=== PATIENT | male | born 1985 | race Caucasian/White ===

== ENCOUNTER 2017-02-24 17:07 | Emergency (ER) | payer BC ==
[~2017-02-24] VITALS: Ht 172.7 cm; Wt 72.6 kg
[~2017-02-24 17:07] MED LIST: AUGMENTIN 875 M1 TAB PO; BACTRIM DS 8001 TA1 PO; CLARITIN10 MG PO; IBU-8800 MG PO; IBU800 MG PO; KEFLEX500 M1 PO; KEFLEX500 MG PO; LEVAQUIN750 M1 PO; LOPRESSOR50 M1 PO; MEDROL DOSEPAK4 MG PO; MOTRIN800 MG PO; Motrin,Rufen800 MG PO; NAPROSYN500 MG PO; PREDNISONE50 MG PO; ULTRAM50 MG PO; ZESTRIL10 MG PO
[2017-02-24 17:17] VITALS: BP 160/100
[2017-02-24] MEDS ORDERED: CEPHALEXIN500 M1 PO (18:42)
== END 2017-02-24 18:46 | disposition home or self-care (01) ==
LOC: ED 17:07
DX: S01.02XA Laceration with foreign body of scalp, initial encounter (principal); Z29.12 Encounter for prophylactic antivenin; F17.200 Nicotine dependence, unspecified, uncomplicated; W22.8XXA Striking against or struck by other objects, initial encounter; Y93.56 Activity, jumping rope; Y92.9 Unspecified place or not applicable; Y99.9 Unspecified external cause status

== ENCOUNTER 2017-02-26 11:33 | Emergency (ER) | payer BC ==
[~2017-02-26] VITALS: Ht 172.7 cm; Wt 72.6 kg
[~2017-02-26 11:33] MED LIST changes: +CEPHALEXIN500 M1 PO
[2017-02-26 11:39] VITALS: BP 145/82
== END 2017-02-26 13:17 | disposition home or self-care (01) ==
LOC: ED 11:33
DX: S01.81XD Laceration without foreign body of other part of head, subsequent encounter (principal); R22.0 Localized swelling, mass and lump, head; I10 Essential (primary) hypertension; Z79.899 Other long term (current) drug therapy; X58.XXXD Exposure to other specified factors, subsequent encounter; Y92.9 Unspecified place or not applicable; Y99.9 Unspecified external cause status

== ENCOUNTER → 2017-11-02 | Outpatient (CLI) | payer BC | END | disposition home or self-care (01) | LOC: RAD 14:52 | DX: G47.00 Insomnia, unspecified (principal); R05 Cough; I10 Essential (primary) hypertension; F17.200 Nicotine dependence, unspecified, uncomplicated ==

== ENCOUNTER → 2017-11-09 | Outpatient (CLI) | payer BC | END | disposition home or self-care (01) | LOC: CARD 15:00 | DX: R01.1 Cardiac murmur, unspecified (principal) ==

== ENCOUNTER → 2017-12-27 | Day surgery (SDC) | payer BC ==
[~2017-12-27] VITALS: Ht 172.7 cm; Wt 72.6 kg
[~2017-12-27] MED LIST changes: +METOPROLOL SUCC25 M2 PO
[2017-12-27 07:30] VITALS: BP 127/75
[2017-12-27 09:06] VITALS: BP 117/71
[2017-12-27 09:22] VITALS: BP 117/80
[2017-12-27 09:40] VITALS: BP 133/62
== END | disposition home or self-care (01) ==
LOC: SDC 12-22 09:30
DX: L72.0 Epidermal cyst (principal); I10 Essential (primary) hypertension; Z82.49 Family history of ischemic heart disease and other diseases of the circulatory system; F17.210 Nicotine dependence, cigarettes, uncomplicated; K21.9 Gastro-esophageal reflux disease without esophagitis; F41.9 Anxiety disorder, unspecified; Z79.899 Other long term (current) drug therapy; Z87.442 Personal history of urinary calculi; Z88.8 Allergy status to other drugs, medicaments and biological substances

== ENCOUNTER 2018-08-02 23:54 | Emergency (ER) | payer BC ==
--- NOTE | ~2018-08-02 | EKG ---
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
[2018-08-03 00:34] LABS: BASO # 0.1 10*3/uL (0.0-0.1); BASO % 0.6 % (0.0-1.0); EOS # 0.2 10*3/uL (0.0-0.4); HEMATOCRIT 47.5 % (42.0-52.0); HEMOGLOBIN 16.3 g/dl (14.0-18.0); LYMPH # 2.4 10*3/uL (1.3-4.4); LYMPH % 28.6 % (27.0-41.0); MEAN CELL VOLUME 98.5 fl (80.0-94.0); MEAN CORPUSCULAR HGB 33.8 pg (27.0-31.0); MEAN CORPUSCULAR HGB CONC 34.3 g/dl (33.0-37.0); MEAN PLATELET VOLUME 8.7 fl (9.6-12.3); MONO # 0.8 10*3/uL (0.1-1.0); NEUT % 59.4 % (47.0-73.0); PLATELET COUNT AUTOMATED 203 10*3/uL (130-400); RED BLOOD COUNT 4.82 10*6/uL (4.50-5.90); RED CELL DISTRI WIDTH 12.4 % (0-14.5); WHITE BLOOD COUNT 8.5 10*3/uL (4.8-10.8)
[2018-08-03 00:45] VITALS: BP 130/82
[2018-08-03 00:45] LABS: ACT PARTIAL THROMBO TIME 27.9 SECONDS (20.8-31.5); INTERNATIONAL NORM RATIO 0.9 (2.0-3.5)
[2018-08-03 00:51] LABS: ALBUMIN 3.7 gm/dl (3.1-4.5); ALKALINE PHOSPHATASE 74 U/L (45-117); BUN 7 mg/dl (7-24); CHLORIDE 102 mmol/L (98-107); CREATININE 0.93 mg/dL (0.70-1.30); POTASSIUM 3.1 mmol/L (3.5-5.1); SGOT/AST 29 IU/L (3-35); SGPT/ALT 29 U/L (12-78); SODIUM 137 mmol/L (136-145)
[2018-08-03 00:55] LABS: TROPONIN I < 0.015 ng/ml (<0.045)
== END 2018-08-03 01:51 | disposition home or self-care (01) ==
LOC: ED 23:54
PROVIDERS: Student in an Organized Health Care Education/Training Program
DX: R07.89 Other chest pain (principal); R06.02 Shortness of breath; R11.0 Nausea; R51 Headache; R53.1 Weakness; R00.0 Tachycardia, unspecified; I10 Essential (primary) hypertension; F17.200 Nicotine dependence, unspecified, uncomplicated; Z88.2 Allergy status to sulfonamides; Z79.899 Other long term (current) drug therapy

== ENCOUNTER 2019-03-20 09:34 | Emergency (ER) | payer BC ==
[~2019-03-20] VITALS: Ht 172.7 cm; Wt 72.6 kg
[2019-03-20 09:36] VITALS: BP 143/78
[2019-03-20] MEDS ORDERED: NAPROSYN500 MG PO (10:44)
== END 2019-03-20 10:50 | disposition home or self-care (01) ==
LOC: ED 09:34
DX: S62.326A Displaced fracture of shaft of fifth metacarpal bone, right hand, initial encounter for closed fracture (principal); F17.200 Nicotine dependence, unspecified, uncomplicated; Z88.2 Allergy status to sulfonamides; Z79.899 Other long term (current) drug therapy; W22.09XA Striking against other stationary object, initial encounter; Y93.89 Activity, other specified; Y92.810 Car as the place of occurrence of the external cause; Y99.8 Other external cause status

== ENCOUNTER 2019-11-26 15:17 | Emergency (ER) | payer SELFPAY ==
[~2019-11-26] VITALS: Ht 172.7 cm; Wt 81.6 kg
[2019-11-26 16:10] LABS: BASO % 0.4 % (0.0-1.0); EOS # 0.1 10*3/uL (0.0-0.4); EOS % 1.1 % (1.0-4.0); HEMATOCRIT 49.2 % (42.0-52.0); HEMOGLOBIN 16.4 g/dl (14.0-18.0); LYMPH # 1.2 10*3/uL (1.3-4.4); LYMPH % 16.4 % (27.0-41.0); MEAN CELL VOLUME 92.8 fl (80.0-94.0); MEAN CORPUSCULAR HGB 30.9 pg (27.0-31.0); MEAN CORPUSCULAR HGB CONC 33.3 g/dl (33.0-37.0); MEAN PLATELET VOLUME 9.5 fl (9.6-12.3); MONO # 0.4 10*3/uL (0.1-1.0); MONO % 5.4 % (3.0-9.0); NEUT # 5.3 10*3/uL (2.3-7.9); NEUT % 76.4 % (47.0-73.0); PLATELET COUNT AUTOMATED 206 10*3/uL (130-400); RED CELL DISTRI WIDTH 13.2 % (0-14.5)
== END 2019-11-26 16:27 | disposition home or self-care (01) ==
LOC: ED 15:17
PROVIDERS: Emergency Medicine
DX: B34.9 Viral infection, unspecified (principal); I10 Essential (primary) hypertension

== ENCOUNTER 2020-11-16 06:31 | Emergency (ER) | payer OTHER ==
[~2020-11-16] VITALS: Ht 172.7 cm; Wt 79.4 kg
[2020-11-16 06:45] VITALS: BP 157/86
== END 2020-11-16 07:28 | disposition home or self-care (01) ==
LOC: ED 06:31
DX: R50.9 Fever, unspecified (principal); R11.2 Nausea with vomiting, unspecified; R19.7 Diarrhea, unspecified; R10.9 Unspecified abdominal pain; R09.81 Nasal congestion; R05 Cough; I10 Essential (primary) hypertension; F17.200 Nicotine dependence, unspecified, uncomplicated; Z20.822 Contact with and (suspected) exposure to COVID-19; Z88.2 Allergy status to sulfonamides; Z79.899 Other long term (current) drug therapy; Z87.442 Personal history of urinary calculi

== ENCOUNTER 2021-02-09 19:11 | Emergency (ER) | payer OTHER | END 2021-02-09 19:33 | disposition left against medical advice (07) | LOC: ED 19:11 | DX: S91.319A Laceration without foreign body, unspecified foot, initial encounter (principal); Z53.21 Procedure and treatment not carried out due to patient leaving prior to being seen by health care provider; X58.XXXA Exposure to other specified factors, initial encounter; Y93.89 Activity, other specified; Y92.89 Other specified places as the place of occurrence of the external cause; Y99.8 Other external cause status ==

== ENCOUNTER 2021-06-06 09:44 | Emergency (ER) | payer BC ==
[~2021-06-06] VITALS: Ht 172.7 cm; Wt 81.6 kg
[2021-06-06 11:50] LABS: BASO % 0.6 % (0.0-1.0); EOS # 0.1 10*3/uL (0.0-0.4); EOS % 1.4 % (1.0-4.0); HEMATOCRIT 54.5 % (42.0-52.0); LYMPH # 1.3 10*3/uL (1.3-4.4); LYMPH % 18.3 % (27.0-41.0); MEAN CELL VOLUME 98.4 fl (80.0-94.0); MEAN CORPUSCULAR HGB 32.1 pg (27.0-31.0); MEAN CORPUSCULAR HGB CONC 32.7 g/dl (33.0-37.0); MEAN PLATELET VOLUME 8.9 fl (9.6-12.3); MONO # 0.5 10*3/uL (0.1-1.0); MONO % 7.2 % (3.0-9.0); NEUT # 5.1 10*3/uL (2.3-7.9); NEUT % 72.2 % (47.0-73.0); PLATELET COUNT AUTOMATED 196 10*3/uL (130-400); RED BLOOD COUNT 5.54 10*6/uL (4.50-5.90); RED CELL DISTRI WIDTH 12.2 % (0-14.5); WHITE BLOOD COUNT 7.1 10*3/uL (4.8-10.8)
[2021-06-06 12:08] LABS: ALBUMIN 3.6 gm/dl (3.1-4.5); ALKALINE PHOSPHATASE 87 U/L (45-117); BUN 12 mg/dl (7-24); CHLORIDE 103 mmol/L (98-107); CREATININE 1.05 mg/dL (0.70-1.30); LIPASE 92 U/L (73-393); SGOT/AST 43 IU/L (3-35); SGPT/ALT 46 U/L (12-78); SODIUM 135 mmol/L (136-145); TOTAL PROTEIN 7.4 gm/dL (6.4-8.2)
[2021-06-06 12:14] LABS: TROPONIN I < 0.015 ng/ml (<0.045)
[2021-06-06] MEDS ORDERED: HYDROCODONE-AC1 EAC1 PO (14:39)
[2021-06-06] MEDS ORDERED: FLOMAX0.4 MG PO (14:39)
[2021-06-06] MEDS ORDERED: ZOFRAN4 MG PO (14:39)
== END 2021-06-06 15:37 | disposition home or self-care (01) ==
LOC: ED 09:44
PROVIDERS: Family Medicine
DX: N20.0 Calculus of kidney (principal); Z20.822 Contact with and (suspected) exposure to COVID-19; Z88.2 Allergy status to sulfonamides; Z79.899 Other long term (current) drug therapy

== ENCOUNTER 2023-07-21 23:45 | Emergency (ER) | payer OTHER, BC ==
[~2023-07-21] VITALS: Ht 172.7 cm; Wt 72.6 kg
[~2023-07-21 23:45] MED LIST changes: +FLOMAX0.4 MG PO; +HYDROCODONE-AC1 EAC1 PO; +ZOFRAN4 MG PO
[2023-07-21 23:47] VITALS: BP 140/98
== END 2023-07-22 02:25 ==
LOC: ED 23:45
DX: S00.83XA Contusion of other part of head, initial encounter (principal); R07.81 Pleurodynia; I10 Essential (primary) hypertension; Z87.442 Personal history of urinary calculi; Z88.2 Allergy status to sulfonamides; Z88.8 Allergy status to other drugs, medicaments and biological substances; Z98.890 Other specified postprocedural states; V43.52XA Car driver injured in collision with other type car in traffic accident, initial encounter; Y93.89 Activity, other specified; Y92.410 Unspecified street and highway as the place of occurrence of the external cause; Y99.8 Other external cause status

== ENCOUNTER 2024-11-06 04:00 | Emergency (ER) | payer BC ==
[~2024-11-06] VITALS: Ht 172.7 cm; Wt 81.6 kg
[2024-11-06 04:27] VITALS: BP 153/106
[2024-11-06] MEDS ORDERED: Tetracaine Hydrochloride 0.5% 4 ML BOT OPH ONE (04:45)
[2024-11-06] MEDS ORDERED: LISSAMINE GREEN 1.5 MG STRIP OP ONE (04:50)
[2024-11-06] MEDS ORDERED: Tdap Vaccine 0.5 ML SYR (Adult Vaccine) IM ONE (05:45)
[2024-11-06] MEDS ORDERED: TOBRAMYCIN 2.5 ML BOT OPH ONE (05:45)
== END 2024-11-06 06:08 | disposition home or self-care (01) ==
LOC: ED 04:00
DX: T15.91XA Foreign body on external eye, part unspecified, right eye, initial encounter (principal); I10 Essential (primary) hypertension; Z87.442 Personal history of urinary calculi; Z88.2 Allergy status to sulfonamides; Z88.8 Allergy status to other drugs, medicaments and biological substances; Z98.890 Other specified postprocedural states; Z87.891 Personal history of nicotine dependence